=== PATIENT | female | born 1990 | race Two or more races ===

== ENCOUNTER 2016-09-23 16:12 | Emergency (ER) | payer MEDICAID ==
[~2016-09-23] VITALS: Ht 165.1 cm; Wt 65.8 kg
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
--- NOTE | 2016-09-23 16:20 | NUR ---
AT BEDSIDE FOR EVAL
--- NOTE | 2016-09-23 16:20 | NUR ---
URINE SAMPLE COLLECTED SENT TO LAB
[2016-09-23] MEDS ORDERED: IV NS 0.9% 0 ML ONE (16:21)
[2016-09-23] MEDS ORDERED: IV NS 0.9% 1,000 ML ONE (16:22)
--- NOTE | 2016-09-23 16:25 | NUR ---
LAB AT BEDSIDE BLOOD SAMPLE COLLECTED
[2016-09-23 16:28] LABS: BASOPHILS # (AUTO) 0.1 /CMM (0.0-0.2); BASOPHILS % (AUTO) 0.9 % (0.0-2.0); EOSINOPHILS % (AUTO) 0.2 % (0.0-6.0); HEMATOCRIT 42 % (33-45); HEMOGLOBIN 14.3 g/dL (11.5-14.8); LYMPHOCYTES % (AUTO) 11.6 % (20.0-44.0); MEAN CORPUSCULAR HEMOGLOBIN 31 PG (26.0-33.0); MEAN CORPUSCULAR HGB CONC 34 g/dl (31.0-36.0); MEAN CORPUSCULAR VOLUME 91 fL (82-100); MONOCYTES # (AUTO) 0.3 /CMM (0.1-1.30); MONOCYTES % (AUTO) 3.3 % (2.0-12.0); NEUTROPHILS # (AUTO) 6.9 /CMM (1.8-8.9); PLATELET COUNT (AUTO) 267 /CMM (150-450); RDW COEFFICIENT OF VARIATION 12.4 (11.5-15.0); RED BLOOD CELL COUNT(AUTO) 4.63 MIL/uL (4.0-5.2); WHITE BLOOD COUNT (AUTO) 8.3 K/uL (4.3-11.0)
[2016-09-23] MEDS ORDERED: IV NS 0.9% 1,000 ML BAG IV ONE (16:30)
[2016-09-23 16:35] LABS: CALCIUM, SERUM 8.9 mg/dL (8.5-10.1); CARBON DIOXIDE 26 mmol/L (21-32); CHLORIDE 107 mmol/L (98-107); CREATININE 0.8 mg/dL (0.6-1.3); GFR 87 mL/min (>60); GLUCOSE 132 mg/dL (74-106); POTASSIUM 3.6 mmol/L (3.5-5.1); SODIUM SERUM 140 mmol/L (136-145); UREA NITROGEN, BLOOD 15 mg/dL (7-18)
[2016-09-23 16:39] LABS: APPEARANCE,URINE Slightly Cloudy (CLEAR); BILIRUBIN,URINE Negative (NEGATIVE); BLOOD, URINE Trace-intact Ery/uL (NEGATIVE); COLOR,URINE Yellow (YELLOW); KETONES,URINE Trace (NEGATIVE); LEUKOCYTE ESTERASE ,URINE Trace (NEGATIVE); NITRITE, URINE Negative (NEGATIVE); PROTEIN,URINE Trace mg/dl (NEGATIVE); UGLUCOSE Negative (NEGATIVE); UROBILINOGEN,URINE 0.2 EU/dL (0.2)
[2016-09-23 16:41] LABS: ALANINE AMINOTRANSFERASE 19 U/L (12-78); ALBUMIN 4.3 g/dL (3.4-5.0); ALCOHOL, BLOOD < 3 mg/dL (0-0); ALKALINE PHOSPHATASE 72 U/L (46-116); ASPARTATE AMINOTRANSFERASE 18 U/L (15-37); BILIRUBIN,DIRECT 0.1 mg/dL (0.0-0.2); BILIRUBIN,TOTAL 0.6 mg/dL (0.2-1.0); TOTAL PROTEIN, SERUM 7.6 g/dL (6.4-8.2)
[2016-09-23 16:43] LABS: ACETAMINOPHEN 0 ug/ml (10-30); SALICYLATE 0.8 mg/dL (2.8-20.0)
[2016-09-23 16:44] LABS: ADD URINE CULTURE NO; BACTERIA,URINE None seen /HPF (None Seen); RBC,URINE 0-2 /HPF (0-2); SQUAMOUS EPITHELIAL CELL,UR Moderate /HPF (None Seen)
[2016-09-23 16:50] LABS: CANNABINOID, URINE NEGATIVE (NEGATIVE); PHENCYCLIDINE SCREEN,URINE NEGATIVE (NEGATIVE)
--- NOTE | 2016-09-23 17:24 | NUR ---
PT TAKEN TO CT SCAN.
--- NOTE | 2016-09-23 19:22 | NUR ---
IV removed. Catheter intact and site benign. Pressure and 4x4 applied to site. No bleeding noted.
[2016-09-23 19:23] VITALS: BP 119/61
--- NOTE | 2016-09-23 19:23 | NUR ---
Patient discharged to home in stable condition. Written and verbal after care instructions given. Patient verbalizes understanding of instruction. Pt ambulatory with a steady gait. VSS, NAD on DC. Denies complaint on DC.
== END 2016-09-23 19:27 | disposition home or self-care (01) ==
LOC: ER 16:13
DX: F29 Unspecified psychosis not due to a substance or known physiological condition (principal); F20.9 Schizophrenia, unspecified; R51 Headache
CPT/HCPCS: 36415; 70450-TC; 80048-TC; 80076-TC; 80305; 81000-TC; 84703-TC; 85025-TC; A4606; G0480; G6039-TC; J7030; Z7610

== ENCOUNTER 2016-09-24 07:25 | Inpatient (IN) | payer MEDICAID ==
[~2016-09-24] VITALS: Ht 160 cm; Wt 59.0 kg
[2016-09-24] VITALS (7 sets, daily range): BP systolic 97–119; BP diastolic 55–86
--- NOTE | 2016-09-24 07:32 | NUR ---
[id number] FROM E ALTERED, PSYCHOSIS. resp is even and unlabored with nad noted. skin is warm and dry. assisted to hospital gown. placed on monitor. will continuously monitor the patient. awaiting md for eval.
--- NOTE | 2016-09-24 07:35 | NUR ---
SPOKE WITH ALTAF,MOTHER STS, SHE'S AT WORK AND CAN BE HERE AT 1524-2017
--- NOTE | 2016-09-24 07:38 | NUR ---
DR BORRERO AT BS FOR ANGELIC.
[2016-09-24] MEDS ORDERED: risperiDONE 1 MG TABLET ONE (07:43)
[2016-09-24] MEDS ORDERED: risperiDONE 0.25 MG TABLET PO ONE (08:00)
--- NOTE | 2016-09-24 08:30 | NUR ---
Food provided at
--- NOTE | 2016-09-24 08:50 | NUR ---
Patient is resting comfortably in bed with eyes closed. Easily aroused. VSS
--- NOTE | 2016-09-24 10:20 | NUR ---
Dr John talking to Hair (patient's fiance) at BS.
--- NOTE | 2016-09-24 10:27 | NUR ---
Hair Bray ([facility]) contact info:
--- NOTE | 2016-09-24 10:28 | NUR ---
erendira rn,honing machine operator paged for eval
--- NOTE | 2016-09-24 10:56 | NUR ---
CALLED [facility] FOR PSYCH EVAL, LEFT MESSAGE ON VOICEMAIL
--- NOTE | 2016-09-24 12:40 | NUR ---
Patient is resting comfortably in bed with eyes closed. Easily aroused. VSS
--- NOTE | 2016-09-24 14:01 | NUR ---
PANEL ON-CALL PAGED
--- NOTE | 2016-09-24 15:01 | NUR ---
REPORT GIVEN TO BUD BARNES FOR [facility] TELE [id number]
--- NOTE | 2016-09-24 15:15 | NUR ---
EMPLOYEE RELATIONS REPRESENTATIVE NOTES RECEIVED PT FROM E.R. STAFF, AWAKE, CALM AND QUIET, ASSISTED TO BED, MADE COMFORTABLE, ACCOMPANIED BY MOTHER, PT REPEATEDLY SAYING IN A QUIET VOICE THAT SHE IS SLEEPY, SEIZURE PRECAUTIONS PROVIDED, PADDED ALL SIDERALS, SITTER AT BEDSIDE.
[2016-09-24] MEDS ORDERED: ZOLPIDEM TARTRATE 5 MG TABLET PO PRN (15:30)
[2016-09-24] MEDS ORDERED: MAG HYDROX/AL HYDROX/SIMETH 30 ML UDC PO PRN (15:30)
[2016-09-24] MEDS ORDERED: ACETAMINOPHEN 325 MG TABLET PO PRN (15:30)
[2016-09-24] MEDS ORDERED: ONDANSETRON HCL/PF 4 MG/2 ML VIAL IVP PRN (15:30)
[2016-09-24] MEDS ORDERED: Z GUARD REMEDY 2 OZ OINT TP PRN (15:30)
[2016-09-24] MEDS ORDERED: MAGNESIUM HYDROXIDE 30 ML UDC PO PRN (15:30)
--- NOTE | 2016-09-24 15:30 | NUR ---
DEPUTY DIRECTOR NOTES PT CALMLY RESTING IN BED, RESPIRATIONS NORMAL, NO FACIAL GRIMACING, NOT ANSWERING BACK WHEN SPOKEN TO, DR. DUMONT CAME TO SEE PT, PT HAD SEIZURE LIKE BEHAVIOR, VITAL SIGNS WITHIN NORMAL LIMITS, THAN CALMED DOWN, NO SOB, SPOKE WITH PT'S MOTHER THROUGH AN CHEMICAL MACHINE TENDER, PLAN OF CARE DISCUSSED WITH MOTHER.
[2016-09-24] MEDS ORDERED: diphenhydrAMINE HCL 50 MG/ML VIAL ONE (15:49)
--- NOTE | 2016-09-24 15:55 | NUR ---
PT IN BED, SITTER AT BEDSIDE, NOTED PT GRABBING HER NECK, KICKING AND TRYING TO HIT STAFF, DOES NOT FOLLOW VERBAL CUES, TRYING TO GET OUT OF BED, PT UNCONTROLLABLE, DR. DUMONT INFORMED, WENT TO SEE PT, ASSISTANCE GIVEN BY STAFF SO THAT PT WILL NOT HURT HERSELF, IV LINE ACCIDENTALLY PULLED OUT, DR. DUMONT ORDERED TO APPLY BILATERAL SOFT WRIST RESTRAINTS, ALSO ORDERED ZYPREXA 10MG IM ONE TIME AND BENADRYL 25MG IM ONE TIME, NOTED AND CARRIED OUT, ADMINISTERED MEDICATIONS, PT CALMED DOWN AFTER ABOUT 10 MINUTES, NO INJURY NOTED,
[2016-09-24] MEDS ORDERED: HALOPERIDOL LACTATE INJ 5 MG/ML VIAL IM ONE (16:00)
[2016-09-24] MEDS ORDERED: OLANZAPINE 10 MG VIAL IM ONE (16:00)
--- NOTE | 2016-09-24 16:30 | NUR ---
PAY STATION COLLECTOR NOTES PT RESTING, NO SIGN OF PAIN AND DISTRESS, DR. MCDOWELL CAME TO SEE PT, ORDERS GIVEN TO TRANSFER PT TO ICU.
--- NOTE | 2016-09-24 16:51 | NUR ---
ALARM SERVICE TECHNICIAN NOTES PT CALM AND RESTING, REPORT GIVEN TO KARLO, LABEL PINKER, TRANSPORTED PT VIA ACLS PROTOCOL IN STABLE CONDITION TO ICU ROOM 257, ALL BELONGINGS CHECKED, ACCOMPANIED BY MOTHER.
[2016-09-24] MEDS ORDERED: OLANZAPINE 5 MG/TAB.RAPDIS PO PRN (17:00)
[2016-09-24] MEDS ORDERED: HALOPERIDOL LACTATE INJ 5 MG/ML VIAL IM PRN (17:00)
[2016-09-24] MEDS ORDERED: OLANZAPINE 10 MG VIAL IM PRN (17:00)
--- NOTE | 2016-09-24 17:00 | NUR ---
ICU/RN: RECEIVED REPORT FROM 3W PT TRANSFERRED TO ICU ACCOMPANIED BY MOTHER OF PT AND SITTER. PT SEEMS TO BE SEDATED, WHEN RESTRAINTS RELEASED PT BEGAN KICKING, PUNCHING AND BITING. PER MD ORDER PT PLACED ON FOUR POINT RESTRAINTS. PT ON ROOM AIR, NO ACUTE RESPIRATORY DISTRESS NOTED. MAINTAINING 02 SAT >98%. PT ON TELE, SINUS. RIGHT HAND PIV PATENT AND INTACT. AWAITING FOR PSYCHE MD FOR FURTHER ORDERS. SAFETY MEASURES TAKEN, SITTER AT BEDSIDE. BED IN LOW POSITION, SIDE RAILS UP, CALL LIGHT WITHIN REACH. WILL CONTINUE CARE
--- NOTE | 2016-09-24 17:10 | NUR ---
ICU/RN: PT RESTING IN BED WITH SITTER AND MOTHER AT BEDSIDE. LEG RESTRAINS REMOVED. NO FURTHER ISSUES NOTED. WILL CONTINUE TO CLOSELY MONITOR. BILATERAL WRIST RESTRAINTS CHECKED PER PROTOCOL.
[2016-09-24] MEDS ORDERED: VALPROATE 250 MG in IV D5W 100 ML IV SCH (18:00)
[2016-09-24] MEDS ORDERED: IV SET PRIMARY PUMP SET 1 EA INFUS.SET MC ONE (18:08)
[2016-09-24] MEDS: OLANZAPINE 5 MG/TAB.RAPDIS PO SCH ×2 (18:13→18:39)
[2016-09-24] MEDS: IV NS 0.9% 1,000 ML IV PRN (18:14)
[2016-09-24] MEDS ORDERED: SECONDARY IV SET 1 EA INFUS.SET MC ONE (18:32)
[2016-09-24] MEDS: VALPROATE 250 MG in IV D5W 100 ML IV SCH (18:36)
--- NOTE | 2016-09-24 18:39 | NUR ---
ICU/RN: ZYPREXA PO ORDERED BY . PT SPIT OUT. MOTHER TRIED CONVINCING PT TO TAKE IT, PT REFUSED. NOTIFIED
--- NOTE | 2016-09-24 19:12 | NUR ---
ICU/RN ENDING NOTES,AM REPORT ENDORSED TO NIGHT NURSE FOR CONTINUATION OF CARE. SITTER AND MOTHER AT BEDSIDE, PT ON BILATERAL WRIST RESTRAINTS. ON ROOM AIR, NO DISTRESS. PT NOT RESPONDING TO HOSPITAL STAFF, WHEN OUT OF ROOM PT OBSERVED CONVERSING WITH MOTHER. IV FLUIDS INFUSING, WILL CONTINUE TO MONITOR
--- NOTE | 2016-09-24 19:20 | NUR ---
RN INITIAL NOTES RECEIVED PT SLEEPING ON BED, NO AGITATION NOTED. ON ROOM AIR, SATURATING WELL. MOM IS AT BEDSIDE. PER AM RN, PATIENT WAS SEEN TALKING TO MOM WHEN BOTH WERE ALONE IN ROOM. BILATERAL SOFT WRIST RESTRAINTS ARE IN PLACE FOR PATIENT SAFETY. 1:1 SITTER IS ALSO AT BEDSIDE. MOM WILL GO HOME FOR THE NIGHT. PT HAS DIAPERS ON. RIGHT HAND 22G WITH NS @ 125MLS/HR, FLUSHED AND PATENT, NO S/S OF INFILTRATION/INFECTION. SEIZURE PRECAUTIONS IN PLACE. BED LOW AND LOCKED, SIDERAILS UP. WILL MONITOR CLOSELY
--- NOTE | 2016-09-24 20:10 | NUR ---
RN NOTES CRISIS RN CARI CAME TO ASSESS THE PATIENT, SHE TALKED TO THE PATIENT'S MOTHER. PT IS TO BE PUT ON 5150 HOLD STARTING TODAY @ 2009 FOR DANGER TO SELF. PATIENT'S MOM IS FULLY AWARE.
--- NOTE | 2016-09-24 20:45 | NUR ---
RN NOTES RECEIVED A CALL FROM DR. MCDOWELL. NOTIFIED HER OF PATIENT'S CURRENT STATE. ALSO NOTIFIED HER THAT CRISIS RN CARI CAME TO PUT THE PATIENT ON HOLD
[2016-09-24] MEDS ORDERED: OLANZAPINE 5 MG/TAB.RAPDIS PO SCH (21:00)
--- NOTE | 2016-09-24 23:00 | NUR ---
RN NOTES PATIENT'S FIANCE AT BEDSIDE. BILATERAL SOFT WRIST RESTRAINTS ARE RELEASED. SITTER REMAINS AT BEDSIDE WELL. PT IS AWAKE BUT REMAINS CALM. WILL MONITOR CLOSELY
[2016-09-25] VITALS (24 sets, daily range): BP systolic 85–119; BP diastolic 42–75
[2016-09-25] MEDS: IV NS 0.9% 1,000 ML IV PRN (02:24)
[2016-09-25] MEDS: VALPROATE 250 MG in IV D5W 100 ML IV SCH ×2 (04:30→12:28)
[2016-09-25 05:00] LABS: BASOPHILS % (AUTO) 0.5 % (0.0-2.0); EOSINOPHILS % (AUTO) 0.3 % (0.0-6.0); HEMATOCRIT 37 % (33-45); HEMOGLOBIN 12.6 g/dL (11.5-14.8); LYMPHOCYTES # (AUTO) 2.8 /CMM (0.8-4.8); LYMPHOCYTES % (AUTO) 45.4 % (20.0-44.0); MEAN CORPUSCULAR HEMOGLOBIN 31 PG (26.0-33.0); MEAN CORPUSCULAR HGB CONC 34 g/dl (31.0-36.0); MEAN CORPUSCULAR VOLUME 92 fL (82-100); MONOCYTES # (AUTO) 0.5 /CMM (0.1-1.30); MONOCYTES % (AUTO) 8.1 % (2.0-12.0); NEUTROPHILS # (AUTO) 2.9 /CMM (1.8-8.9); NEUTROPHILS % (AUTO) 45.7 % (43.0-81.0); PLATELET COUNT (AUTO) 214 /CMM (150-450); RDW COEFFICIENT OF VARIATION 13.6 (11.5-15.0); RED BLOOD CELL COUNT(AUTO) 4.05 MIL/uL (4.0-5.2); WHITE BLOOD COUNT (AUTO) 6.3 K/uL (4.3-11.0)
[2016-09-25 05:16] LABS: ALBUMIN 3.5 g/dL (3.4-5.0); BILIRUBIN,TOTAL 1.4 mg/dL (0.2-1.0); CREATININE 0.6 mg/dL (0.6-1.3); MAGNESIUM 2.1 mg/dL (1.8-2.4); PHOSPHORUS 3.6 mg/dL (2.5-4.9); POTASSIUM 3.8 mmol/L (3.5-5.1); TOTAL PROTEIN, SERUM 6.3 g/dL (6.4-8.2)
--- NOTE | 2016-09-25 06:30 | NUR ---
RN CLOSING NOTES PT REMAINS TO BE OFF RESTRAINTS. CALM AND SLEEPING ON BED. SITTER IS AT BEDSIDE. WILL ENDORSE TO AM RN.
--- NOTE | 2016-09-25 06:50 | NUR ---
RN NOTES DR DUMONT AT BEDSIDE TO TALK AND ASSESS THE PATIENT.
--- NOTE | 2016-09-25 08:00 | NUR ---
ICU/RN INITIAL NOTES,AM RECEIVED REPORT FROM NIGHT NURSE. PT ON ROOM AIR, NO ACUTE DISTRESS NOTED. PT ON 5150 HOLD. RESTRAINTS REMOVED LAST NIGHT, PT COOPERATING, NO KICKING AND SCREAMING AT THIS TIME. WILL CONTINUE TO MONITOR. POSSIBLE TRANSFER OUT OF ICU THIS AFTERNOON. IV FLUIDS INFUSING ORDERED. PIV PATENT AND INTACT, NO S/S OF INFECTION NOTED. SAFETY MEASURES TAKEN, BED IN LOW POSITION, SIDE RAILS UP, CALL LIGHT WITHIN REACH. WILL CONTINUE CARE.
[2016-09-25] MEDS: PANTOPRAZOLE 40 MG TABLET.DR PO SCH (08:11)
[2016-09-25] MEDS: IV D5/0.45 NACL 1,000 ML IV PRN ×2 (08:11→16:51)
[2016-09-25] MEDS ORDERED: OLAN5TAB6 PO ×2 (12:17)
[2016-09-25] MEDS ORDERED: VALP250S11 PO (12:17)
--- NOTE | 2016-09-25 13:29 | NUR ---
MIRIAM met with pt. bedside. Pt. is A&O x 3. Pt. was speaking softly during the assessment. SW had to ask pt. to repeat herself several times. Pt. states she [place] with her boyfriend [place] [id number] [address] in [place]. [place]. Reaves's contact is . Pt. is currently on a 5150 for grave disability. Pt. has a history of psychiatric hospitalizations. Pt's last psychiatric hospitalization was in November 2015 in [place]. Pt. has a psychiatrist Dr. Marroquin that she sees every three months. Pt. states she missed her last appointment. Pt. states she takes her medications regularly and states " I have to". Pt. is denying suicidal/homicidal ideations today and denies visual/auditory hallucinations. Pt. denies using drugs, alcohol or smoking cigarettes. Pt. inquired with SW as to when she will be going home. MIRIAM informed pt. the psychiatrist will be coming to see her today and will determine if she can go home today or not. Pt. understood. MIRIAM contacted [facility] and spoke to Amador who informed they do have beds available and to fax referral to intake. MIRIAM faxed Intake referral to [facility] [phone]. MIRIAM contacted July Longo at [facility] who informed they have no beds available at this time. Addendum: 09/25/16 at 7798 by LYRIC PINEDA MIRIAM contacted [facility] at and spoke to Eyal who informed MIRIAM they cannot accept pt. from the med floor only ED. Addendum: 09/25/16 at 1611 by LYRIC PINEDA MIRIAM contacted [facility] to follow up regarding admitting pt. to their facility. wellness coordinator informed MIRIAM that they are still reviewing the case and will follow up with MIRIAM.
--- NOTE | 2016-09-25 14:30 | NUR ---
ICU/RN: PT SEEN BY . PT MEDICALLY CLEARED. ABLE TO DISCHARGE WHEN CLEARED BY PSYCHE. WILL FOLLOW UP WITH
--- NOTE | 2016-09-25 15:30 | NUR ---
ICU/RN: PT ASSESSED BY DR. MCDOWELL. PT CONTINUES TO BE ON 5150 HOLD. LYRIC SEARCHING FOR PLACEMENT FOR PT. WILL FOLLOW UP. NO PLACEMENT FOUND AT THIS TIME.
[2016-09-25] MEDS: OLANZAPINE 5 MG/TAB.RAPDIS PO SCH (16:50)
--- NOTE | 2016-09-25 19:05 | NUR ---
ICU/RN ENDING NOTES,AM REPORT ENDORSED TO NIGHT NURSE. PT ALERT, AWAKE, FOLLOWING COMMANDS. PT ON 5150 HOLD. SITTER AT BEDSIDE. ON ROOM AIR, NO DISTRESS NOTED. VSS. PT BATHED, ABLE TO TURN AND REPOSITION SELF. PT READY TO DISCHARGE, MEDICALLY CLEARED AWAITING FOR PLACEMENT.
--- NOTE | 2016-09-25 19:45 | NUR ---
LOG SKIDDER. INITIAL ASSESSMENT RECEIVED RTHE PT REST ON THE BED.SLEEPING. SITTER AT BED SIDE. PRODUCT OPERATIONS ASSOCIATE SHOWING NSR. IV RT HAND 22G, IVF D51/2NS 125ML/H. PT ON ROOM AIR. SAT 98%> PT IS LETHARGIC. HOB ELEVATED. TURN AND REPOSITION PT INDEPENDENT. WILL CONTINUE TO MONITOR VITALS.
[2016-09-25] MEDS: DIVALPROEX SODIUM 500 MG TABLET.DR PO SCH (21:58)
[2016-09-26] VITALS (18 sets, daily range): BP systolic 93–129; BP diastolic 49–83
--- NOTE | 2016-09-26 02:40 | NUR ---
ASSOCIATE BUSINESS ANALYST. AM CARE, ORAL CARE, BED BATH GIVEN. LINEN CHANGED. REMAINING SAME IVF RUNNINGS. AFEBRILE. IV LT HAND 22G. IVF D51/2NS 125ML/H. HOB ELEVATED. DURING SHIFT NO SEIZURE NOTED. INTERMEDIATE ACCOUNTANT SHOWING NSR. PT ON ROOM AIR. HOB ELEVATED. SITTER AT BED SIDE. AFEBRILE. WILL CONTINUE TO MONITOR VITALS.
[2016-09-26 04:22] LABS: BASOPHILS % (AUTO) 0.7 % (0.0-2.0); EOSINOPHILS % (AUTO) 0.6 % (0.0-6.0); HEMATOCRIT 40 % (33-45); HEMOGLOBIN 13.6 g/dL (11.5-14.8); LYMPHOCYTES # (AUTO) 3.4 /CMM (0.8-4.8); LYMPHOCYTES % (AUTO) 59.8 % (20.0-44.0); MEAN CORPUSCULAR HEMOGLOBIN 31 PG (26.0-33.0); MEAN CORPUSCULAR HGB CONC 34 g/dl (31.0-36.0); MEAN CORPUSCULAR VOLUME 92 fL (82-100); MONOCYTES # (AUTO) 0.4 /CMM (0.1-1.30); MONOCYTES % (AUTO) 7.8 % (2.0-12.0); NEUTROPHILS # (AUTO) 1.8 /CMM (1.8-8.9); NEUTROPHILS % (AUTO) 31.1 % (43.0-81.0); PLATELET COUNT (AUTO) 195 /CMM (150-450); RDW COEFFICIENT OF VARIATION 13.6 (11.5-15.0); RED BLOOD CELL COUNT(AUTO) 4.39 MIL/uL (4.0-5.2); WHITE BLOOD COUNT (AUTO) 5.7 K/uL (4.3-11.0)
[2016-09-26 04:39] LABS: CALCIUM, SERUM 8.6 mg/dL (8.5-10.1); CREATININE 0.8 mg/dL (0.6-1.3); POTASSIUM 3.9 mmol/L (3.5-5.1)
[2016-09-26] MEDS: IV D5/0.45 NACL 1,000 ML IV PRN (06:31)
--- NOTE | 2016-09-26 08:00 | NUR ---
ICU/RN: PT RESTING IN BED EYES CLOSED, WITHDRAWN, FLAT AFFECT, COMPLIANT WITH MEDS. REFUSES TO EAT BREAKFAST AT THIS TIME. ORIENTED TO UNIT. ASKED PT IF SHE HAD THOUGHTS OF HARMING SELF, PT SHAKES HEAD, SAYS NO. HOWEVER REFUSES TO ANSWER FURTHER QUESTIONS. 1:1 SITTER AT THE BEDSIDE. REMAINS ON 5150 HOLD. SUICIDE PRECAUTIONS IN PLACE, SUICIDE RISK ASSESSMENT COMPLETED, REFER TO FLOWSHEET. WILL CONT TO MONITOR PT.
[2016-09-26] MEDS: DIVALPROEX SODIUM 500 MG TABLET.DR PO SCH (08:48)
[2016-09-26] MEDS: OLANZAPINE 5 MG/TAB.RAPDIS PO SCH ×2 (08:49→17:19)
[2016-09-26] MEDS: PANTOPRAZOLE 40 MG TABLET.DR PO SCH (08:49)
--- NOTE | 2016-09-26 10:30 | NUR ---
ICU/RN: DR BECKWITH ON PHONE; UPDATED ON PT STATUS. PER MD, PT IS MEDICALLY CLEAR FOR DC. INFORMED MD OF PLACEMENT ISSUES. NO NEW ORDERS.
--- NOTE | 2016-09-26 14:14 | NUR ---
MIRIAM met with pt. bedside. Pt. is feeling much better and denies any suicidal/homicidal ideations and visual/auditory hallucinations at this time. Pt. is no longer on a 5150 hold and will be discharged home today to her mother. Pt. was informed her mother will be picking pt. up today around 5PM this evening. MIRIAM gave pt. list of outpatient mental health resources which include [facility] , [facility] and several others. Addendum: 09/26/16 at 1417 by LYRIC PINEDA ICU PHUONG Poon has been updated regarding pt's discharge plan.
--- NOTE | 2016-09-26 17:50 | NUR ---
ICU/RN: PT DISCHARGED IN STABLE CONDITION. ASSESSED SUICIDAL INTENT WITH MOTHER AND VEIN ACCESS TECHNICIAN AT THE BEDSIDE; PT DENIES SI, STATES "IM GOOD, IM HAPPY, I DONT WANT TO HURT MYSELF. I DONT HEAR ANY VOICES, NOTHING." EDUCATED PT AND ALTAF [MOM] ON MEDS. VERBALIZED UNDERSTANDING. PT TO F/U WITH OWN PSYCHIATRIST; PT SHOWED RESOURCES GIVEN BY STERILE PROCESS TECH TO MOTHER. INSTRUCTED MOTHER AND PT TO RETURN TO ER SHOULD SUICIDAL THOUGHTS REOCCUR. IV HL DC'D, PT TOLERATED WELL. ALL PAPERWORK AND BELONGINGS SIGNED AND ACCOUNTED FOR. ESCORTED TO LOBBY VIA . SENT HOME VIA PRIVATE CAR DRIVEN BY MOTHER.
== END 2016-09-26 17:50 | disposition home or self-care (01) | DRG 756 ==
LOC: ER 07:26 → TELE 14:44 → ICU 16:23
PROVIDERS: ADMIT Family Medicine; ATTEND Family Medicine
DX: F44.5 Conversion disorder with seizures or convulsions (principal); G93.41 Metabolic encephalopathy; F20.9 Schizophrenia, unspecified
CPT/HCPCS: 36415; 80048-TC; 80053-TC; 83735-TC; 84100-TC; 84146; 85025-TC; 87081-TC; 92611-TC; 94799-TC; A4606; J1200; J3490; J7030; J7060; Z7610

== ENCOUNTER 2017-02-24 13:44 | Emergency (ER) | payer MEDICAID ==
[~2017-02-24] VITALS: Ht 165.1 cm; Wt 70.3 kg
[~2017-02-24 13:44] MED LIST: OLAN5TAB6 PO; VALP250S11 PO
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
--- NOTE | 2017-02-24 13:47 | NUR ---
DR TORIBIO AT BEDSIDE FOR EVAL.
[2017-02-24 13:57] LABS: BASOPHILS # (AUTO) 0.2 /CMM (0.0-0.2); BASOPHILS % (AUTO) 2.4 % (0.0-2.0); EOSINOPHILS % (AUTO) 0.1 % (0.0-6.0); HEMATOCRIT 44 % (33-45); HEMOGLOBIN 15.1 g/dL (11.5-14.8); LYMPHOCYTES # (AUTO) 1.1 /CMM (0.8-4.8); LYMPHOCYTES % (AUTO) 17.2 % (20.0-44.0); MEAN CORPUSCULAR HEMOGLOBIN 31 PG (26.0-33.0); MEAN CORPUSCULAR HGB CONC 35 g/dl (31.0-36.0); MEAN CORPUSCULAR VOLUME 90 fL (82-100); MONOCYTES # (AUTO) 0.2 /CMM (0.1-1.30); MONOCYTES % (AUTO) 3.8 % (2.0-12.0); NEUTROPHILS # (AUTO) 4.8 /CMM (1.8-8.9); NEUTROPHILS % (AUTO) 76.5 % (43.0-81.0); PLATELET COUNT (AUTO) 236 /CMM (150-450); RDW COEFFICIENT OF VARIATION 12.7 (11.5-15.0); RED BLOOD CELL COUNT(AUTO) 4.86 MIL/uL (4.0-5.2); WHITE BLOOD COUNT (AUTO) 6.3 K/uL (4.3-11.0)
[2017-02-24 14:07] LABS: CALCIUM, SERUM 9.2 mg/dL (8.5-10.1); CREATININE 0.7 mg/dL (0.6-1.3); POTASSIUM 3.9 mmol/L (3.5-5.1)
[2017-02-24 14:12] LABS: ALBUMIN 4.6 g/dL (3.4-5.0); BILIRUBIN,DIRECT 0.2 mg/dL (0.0-0.2); BILIRUBIN,TOTAL 1.1 mg/dL (0.2-1.0)
--- NOTE | 2017-02-24 15:34 | NUR ---
Patient discharged to home in stable condition. Written and verbal after care instructions given. Patient verbalizes understanding of instruction.IV removed. Catheter intact and site benign. Pressure and 4x4 applied to site. No bleeding noted.
[2017-02-24 15:35] VITALS: BP 132/75
[2017-02-24 18:15] LABS: ACETAMINOPHEN 0 ug/ml (10-30); SALICYLATE < 0.2 mg/dL (2.8-20.0)
== END 2017-02-24 15:36 | disposition home or self-care (01) ==
LOC: ER 13:46
DX: R11.2 Nausea with vomiting, unspecified (principal)
CPT/HCPCS: 36415; 80048; 80076; 80329; 83690; 84703; 85025; 96374; 99284; A4606; G0480; J2405; J7030; Z7610

== ENCOUNTER 2018-02-24 21:13 | Emergency (ER) | payer MEDICAID ==
[~2018-02-24] VITALS: Ht 154.9 cm; Wt 59.0 kg
[2018-02-24 21:13] VITALS: BP 157/78
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
== END 2018-02-24 23:17 | disposition home or self-care (01) ==
LOC: ER 21:13
DX: M79.672 Pain in left foot (principal)
CPT/HCPCS: 99282; A4606; Z7610